=== PATIENT | female | born 1965 | race Hispanic/Latino ===

== ENCOUNTER 2016-06-18 12:17 | Outpatient (CLI) | payer BC ==
--- NOTE | 2016-06-18 21:38 | RAD ---
CHEST TWO VIEWS 06/18/16 No prior films were available for comparison. The heart is normal in size and the lungs are clear. T here is no congestive change or pleural effusion. The mediastinum appears normal and the trachea is midline. The bony structures appear normal. IMPRESSION: No acute thoracic findings. POS: HOME
== END 2016-06-18 12:18 | disposition home or self-care (01) ==
LOC: BURLAB 12:17 → BURRAD 12:18
PROVIDERS: ATTEND Family Medicine
DX: R06.09 Other forms of dyspnea (principal)
CPT/HCPCS: 36415; 71020; 80053; 80061; 83880; 84443; 85025

== ENCOUNTER 2016-06-18 13:33 | Outpatient (CLI) | payer BC ==
[2016-06-18 14:06] LABS: #Basophils 0.1 thou/uL (0.0-0.2); #Monocytes 0.4 thou/uL (0.11-0.59); #Neutrophils 3.4 thou/uL (1.40-6.50); %Basophils 1.2 % (0.0-1.0); %Eosinophils 0.8 % (0.0-10.0); %Lymphocytes 34.1 % (21.0-51.0); %Monocytes 6.7 % (0.0-10.0); %Neutrophils 57.1 % (42.0-75.0); Hemoglobin 12.5 g/dL (12.0-16.0); Mean Corpuscular HGB CONC 32.5 g/dL (32.0-36.0); Mean Corpuscular Hemoglobin 26.6 pg (27.0-31.0); Mean Corpuscular Volume 81.6 fl (81.0-99.0); Mean Platelet Volume 7.3 fL (7.4-10.4); Platelet Count 348 thou/uL (130-400); RBC Distribution Width 11.7 % (11.5-14.5); Red Blood Cell (RBC) Count 4.69 mill/uL (4.20-5.40); White Blood Cell (WBC) Count 5.9 thou/uL (4.8-10.8)
[2016-06-18 14:23] LABS: ALT (SGPT) 22 U/L (8-55); AST (SGOT) 20 U/L (5-34); Albumin 3.9 g/dL (3.5-5.0); Alkaline Phosphatase 155 U/L (40-150); Anion Gap 12 mmol/L (10-20); BUN (Urea Nitrogen) 17 mg/dL (9.8-20.1); Bilirubin, Total 0.7 mg/dL (0.2-1.2); Calc. Creatinine Clearance 0 mL/min (70-130); Calcium 9.8 mg/dL (7.8-10.44); Carbon Dioxide 27 mmol/L (22-29); Cardiac Risk 3.6 (Less than 4.5); Chloride 108 mmol/L (98-107); Cholesterol 163 mg/dL (< 200 Desired); Estimated GFR-MDRD Greater than 90; Globulin 3.1 g/dL (2.4-3.5); Glucose 89 mg/dL (70-105); HDL Cholesterol 45 mg/dL (>60 Neg Risk); LDL Cholesterol, Calculated 99 mg/dL; Potassium 4.3 mmol/L (3.5-5.1); Sodium 143 mmol/L (136-145); Triglycerides 96 mg/dL (Less than 150)
== END 2016-06-18 13:34 | disposition home or self-care (01) ==
LOC: HPCALD 13:33
PROVIDERS: ATTEND Family Medicine
DX: Z13.6 Encounter for screening for cardiovascular disorders (principal); R06.09 Other forms of dyspnea
CPT/HCPCS: 36415; 80053; 80061; 83880; 84443; 85025

== ENCOUNTER 2016-07-02 14:12 | Outpatient (CLI) | payer BC ==
[2016-07-02 15:05] LABS: Free T4 (Free Thyroxine) 2.74 ng/dL (0.70-1.48); Thyroid Stimulating Hormone Less than 0.0025 uIU/mL (0.35-4.94)
== END 2016-07-02 14:13 | disposition home or self-care (01) ==
LOC: HPCALD 14:12
PROVIDERS: ATTEND Family Medicine
DX: R79.89 Other specified abnormal findings of blood chemistry (principal)
CPT/HCPCS: 36415; 84439; 84443; 84481

== ENCOUNTER 2016-07-05 11:17 | Outpatient (CLI) | payer BC | END 2016-07-05 11:18 | disposition home or self-care (01) | LOC: HPCALD 11:17 | PROVIDERS: ATTEND Family Medicine | DX: E05.90 Thyrotoxicosis, unspecified without thyrotoxic crisis or storm (principal) | CPT/HCPCS: 36415; 84445 ==

== ENCOUNTER 2019-01-27 22:30 | Emergency (ER) | payer BC ==
[2019-01-27 22:59] LABS: Bilirubin Negative (Negative); Blood, Urine Moderate (Negative); Clarity Slightly Cloudy (Clear); Glucose, Urine (Dipstick) Negative (Negative); Leukocyte Large (Negative); Nitrite Negative (Negative); Protein, Urine (Dipstick) Negative (Neg-Trace); Urobilinogen 0.2 mg/dL (Less than 2)
[2019-01-27 23:11] LABS: RBC/HPF 0-3 HPF (0-3); Renal Epithelial 0-3 HPF (None Seen); Squamous Epithelial 0-3 HPF (0-3)
[2019-01-27 23:12] LABS: Bacteria/HPF 1+ HPF (None Seen)
[2019-01-27] MEDS ORDERED: Sulfameth/Trimethoprim DS 800-160mg TAB ONE (23:23)
== END 2019-01-27 23:25 | disposition home or self-care (01) ==
LOC: BURERS 22:30
DX: N10 Acute pyelonephritis (principal); E03.9 Hypothyroidism, unspecified
CPT/HCPCS: 81003; 81015; 87086; 99283

== ENCOUNTER 2019-02-22 11:04 | Outpatient (CLI) | payer BC ==
--- NOTE | 2019-02-22 17:57 | CT ---
CT OF THE ABDOMEN AND PELVIS WITHOUT CONTRAST: Date: 02-22-2019 Technique: Spiral CT of the abdomen and pelvis was performed for evaluation of flank pain. Axial slic es were acquired followed by coronal and sagittal reconstructions. FINDINGS: The lung bases are clear. The liver, spleen, pancreas, adrenal glands, kidneys, and abdominal aorta w ere all unremarkable in appearance within the limitations of a noncontrast study. The patient's gallbladder seems abnormal. It is at least very thick walled. I cannot tell internally if there is merely thickening or if there is a mass density. No calcifications were seen. I would rec ommend following up with an ultrasound to show it better. There is no dilation of any intrahepatic du cts. The pancreatic head was seen fairly well and appeared normal. No mass or hydronephrosis was seen in either kidney. The bowel shows no distention or wall thickening. No free air or free fluid was seen. CT of the pelvis shows no adnexal masses, fluid collections or inflammatory changes. Finally, there i s fragmentation of the facet joint at the L4-5 level on the left. There is at least severe degenerati ve change here, if not old trauma. Other studies would be needed to evaluate it better. IMPRESSION: Abnormal appearing gallbladder with at least very thick petit. Ultrasound strongly advised for furthe r workup. Code T POS: HOME
== END 2019-02-22 11:05 | disposition home or self-care (01) ==
LOC: BURCT 11:04
PROVIDERS: ATTEND Family Medicine
DX: R10.9 Unspecified abdominal pain (principal)
CPT/HCPCS: 74176

== ENCOUNTER 2019-02-25 09:03 | Outpatient (CLI) | payer BC ==
--- NOTE | 2019-02-25 21:46 | ULT ---
ABDOMINAL ULTRASOUND: 02/25/19 Ultrasonography of the abdomen was done in response to abnormal findings on a recent CT scan. The sca n suggested gallbladder disease. The patient presents with right flank pain for three months. The liver is normal in appearance and measures about 14 cm long. The spleen is normal in size. The vi sible portions of the pancreas were unremarkable, though not all areas were seen equally well. The gallbladder indeed is abnormal and there appears to be stones and sludge within the fundus of the gallbladder. One could not see such findings elsewhere. The patient was scanned in multiple position s and still the findings appeared to be in the fundus. The wall itself was only 2 mm thick. The commo n bile duct is large measuring 7 mm in caliber. The abdominal aorta was normal in caliber. The kidneys both appeared normal with the right measuring 9.8 cm in length and the left measuring 10.7 cm. There was no Aponte's sign during the examination. IMPRESSION: Abnormal gallbladder with what appears to be stones and sludge lodged in mainly the fundus. This seem ed to be true regardless of positioning. Given the symptoms and these findings, I would recommend jesús gical referral. I could not establish that there was any other definite pathology within the gallblad nikkie, such as mass, but the appearance was clearly abnormal. POS: HOME
== END 2019-02-25 09:04 | disposition home or self-care (01) ==
LOC: BURULT 09:03
PROVIDERS: ATTEND Family Medicine
DX: R10.9 Unspecified abdominal pain (principal); K82.8 Other specified diseases of gallbladder; R93.5 Abnormal findings on diagnostic imaging of other abdominal regions, including retroperitoneum
CPT/HCPCS: 93975

== ENCOUNTER 2023-09-10 08:52 | Outpatient (CLI) | payer BC | END 2023-09-10 08:53 | disposition home or self-care (01) | LOC: BURRAD 08:52 | PROVIDERS: ATTEND Physician Assistant | DX: M53.86 Other specified dorsopathies, lumbar region (principal); M51.36 Other intervertebral disc degeneration, lumbar region; M47.816 Spondylosis without myelopathy or radiculopathy, lumbar region | CPT/HCPCS: 72110 ==